=== PATIENT | male | born 1990 ===

== ENCOUNTER 2023-01-17 02:15 | Outpatient (CLI) | payer SELFPAY | END 2023-01-17 02:16 | disposition EMS.NT | LOC: EMS 02:15 | DX: Z03.89 Encounter for observation for other suspected diseases and conditions ruled out (principal) ==

== ENCOUNTER 2023-12-12 20:35 | Outpatient (CLI) | payer SELFPAY | END 2023-12-12 23:59 | disposition critical access hospital (66) | LOC: EMS 20:35 | DX: R40.4 Transient alteration of awareness (principal); W07.XXXA Fall from chair, initial encounter; Y92.511 Restaurant or cafe as the place of occurrence of the external cause; F10.90 Alcohol use, unspecified, uncomplicated | CPT/HCPCS: A0425; A0429 ==

== ENCOUNTER 2023-12-12 20:53 | Emergency (ER) | payer SELFPAY ==
[2023-12-12 21:09] VITALS: BP 154/88; O2SAT 100
--- NOTE | 2023-12-12 21:24 | ED Physician Documentation ---
History of Present Illness - Stated complaint Stated Complaint: ETOH - Chief complaint Chief Complaint: General - History obtained from History obtained from: Patient, EMS - History of Present Illness Timing: Today Pain level max: 0 Pain level now: 0 - Additonal information Additional information: Patient is a 33-year-old male who is brought into the emergency department by EMS for drinking alcohol today. They state that they were called to a restaurant in [place] where he was passed out on the floor. Patient reportedly lie down on the floor and fell asleep. No fall. No trauma. No injuries. No chest pain. No shortness of breath. No nausea or vomiting. No abdominal pain. No neck or back pain. Denies any other drug use. States he is not on any medications currently. Review of Systems Constitutional: denies: Fever, Chills GI: denies: Vomiting Skin: denies: Rash Musculoskeletal: denies: Neck pain, Back pain Neurologic: denies: Headache PD PAST MEDICAL HISTORY - Past Medical History Past Medical History: No - Past Surgical History Past Surgical History: No - Present Medications Home Medications: Ambulatory Orders Medication Instructions Recorded Confirmed No Known Home Medications 12/12/23 12/12/23 - Allergies Allergies/Adverse Reactions: Allergies Allergy/AdvReac Type Severity Reaction Status Date / Time No Known Drug Allergies Allergy Verified 12/12/23 21:06 - Social History Does the pt smoke?: Yes Smoking Status: Current every day smoker Does the pt drink ETOH?: Yes Does the pt have substance abuse?: Yes Substance Use and Type: Marijuana PD ED PE NORMAL - Vitals Vital signs reviewed: Yes - General General: Alert and oriented X 3, No acute distress - HEENT HEENT: Atraumatic, PERRL, Moist mucous membranes - Neck Neck: Supple, no meningeal sign, No bony TTP - Cardiac Cardiac: RRR, Strong equal pulses - Respiratory Respiratory: No respiratory distress, Clear bilaterally - Abdomen Abdomen: Soft, Non tender, Non distended - Back Back: No spinal TTP - Derm Derm: Warm and dry - Extremities Extremities: No deformity, Normal ROM s pain - Neuro Neuro: Alert and oriented X 3, manager print 2-12 intact, No motor deficit, No sensory deficit, Normal speech Eye Opening: Spontaneous Motor: Obeys Commands Verbal: Oriented GCS Score: 15 - Psych Psych: Normal mood, Normal affect Results - Vitals Vitals: Vital Signs - 24 hr 12/12/23 20:59 Temperature 36.9 C Heart Rate 103 H Respiratory 18 Rate Blood Pressure 154/88 H O2 Saturation 100 Oxygen O2 Source Room air - EKG (time done) 1 EKG releavant findings:: EKG personally interpreted by author of this note. Relevant findings are: Rate: Rate (enter#) (89) Rhythm: NSR Intervals: Normal RI QRS: Normal Ischemia: ST elevation c/w repol PD Medical Decision Making - ED course Complexity details: reviewed results, re-evaluated patient, considered differential, d/w patient ED course: 33-year-old male brought in for alcohol intoxication. He is eating and drinking in the emergency department. Ambulating back and forth to the bathroom under his own power with a steady gait. No slurring of his speech. EKG does not show any acute abnormalities. Refuses any blood work. Offered to try to get him to a local homeless correction with the police. He refuses this. He states he just wants to leave and go back to the streets. I offered to allow him to sleep in the emergency department, he refuses this as well. He is not suicidal or homicidal. No criteria for involuntary hold. Patient counseled regarding signs and symptoms for which I believe and urgent re-evaluation would be necessary. Patient with good understanding of and agreement to plan and is comfortable going home at this time This document was made in part using voice recognition software. While efforts are made to proofread this document, sound alike and grammatical errors may occur. Departure - Departure Disposition: 01 Home, Self Care Clinical Impression: Alcohol intoxication Qualifiers: Complication of substance-induced condition: uncomplicated Qualified Code(s): F 10.920 - Alcohol use, unspecified with intoxication, uncomplicated Condition: Good Instructions: ED Alcohol Intoxication Follow-Up: [facility] [place] [Provider Group] [facility] [Provider Group] [facility] [place] [Provider Group] [facility] [place] [Provider Group] Comments: You were seen for alcohol intoxication tonight. Please follow-up with your doctor for any further care. Please return if you worsen. Crisis Line and is available to talk to someone [email or web address] is also available to chat with someone online if you prefer. There are also many resources on this website and apps for your phone to help with your mental health You can also text the word START to [phone] to chat with someome via text. Forms: PCP List
== END 2023-12-12 22:12 | disposition home or self-care (01) ==
LOC: EDUNIT# → ED 20:53
DX: F10.129 Alcohol abuse with intoxication, unspecified (principal); Z59.02 Unsheltered homelessness
CPT/HCPCS: 93005; 99283